=== PATIENT | female | born 1950 | race Caucasian/White ===

== ENCOUNTER 2018-03-26 21:27 | Emergency (ER) | payer MEDICARE, OTHER ==
[2018-03-26] MEDS ORDERED: FAMOTIDINE INJ/PF 20 MG/2 ML SDV IV ONE (21:37)
--- NOTE | 2018-03-26 21:39 | ER Document Report ---
ED Allergic Reaction - General Chief Complaint: Allergic Reaction Stated Complaint: ALLERGIC REACTION Time Seen by Provider: 03/26/18 21:32 Notes: Patient is a 67-year-old female that comes by EMS for chief complaint of insect sting and allergic reaction. Patient states that she was stung on the right arm by either a yellow jacket or wasp, she states that very shortly afterwards she started feeling itchy in her throat, had difficulty breathing, and felt like she was going to pass out. She also had a rash that broke out over her body. EMS gave her 0.3 mg IM of epinephrine, 50 mg of Benadryl, 125 mg of Solu- Medrol. Patient states that she feels significantly better. Patient was initially hypotensive with systolic in the 80s. Patient reports past medical history of hypertension and hyperlipidemia, lives at home, denies any other medical history. TRAVEL OUTSIDE OF THE [place] IN LAST 30 DAYS: No Past Medical History - General Information source: Patient - Social History Smoking Status: Never Smoker Frequency of alcohol use: None Drug Abuse: None Lives with: Family Family History: Reviewed & Not Pertinent - Immunizations Hx Diphtheria, Pertussis, Tetanus Vaccination: Yes Review of Systems - Review of Systems Constitutional: No symptoms reported EENT: See HPI Cardiovascular: No symptoms reported Respiratory: See HPI Gastrointestinal: No symptoms reported Genitourinary: No symptoms reported Female Genitourinary: No symptoms reported Musculoskeletal: No symptoms reported Skin: No symptoms reported Hematologic/Lymphatic: No symptoms reported Neurological/Psychological: No symptoms reported Physical Exam - Vital signs Vitals: Temp Pulse Resp BP Pulse Ox 98.6 F 76 18 136/55 H 96 03/26/18 21:27 03/26/18 21:27 03/26/18 21:27 03/26/18 21:27 03/26/18 21:27 - Notes Notes: GENERAL: Alert, interacts well. No acute distress. HEAD: Normocephalic, atraumatic. EYES: Pupils equal, round, and reactive to light. Extraocular movements intact. ENT: Oral mucosa moist, tongue midline. NECK: Full range of motion. Supple. Trachea midline. LUNGS: Clear to auscultation bilaterally, no wheezes, rales, or rhonchi. No respiratory distress. HEART: Regular rate and rhythm. No murmur ABDOMEN: Soft, non-tender. Non-distended. Bowel sounds present in all 4 quadrants. EXTREMITIES: Moves all 4 extremities spontaneously. No edema, normal radial and dorsalis pedis pulses bilaterally. No cyanosis. BACK: no cervical, thoracic, lumbar midline tenderness. No saddle anesthesia, normal distal neurovascular exam. NEUROLOGICAL: Alert and oriented x3. Normal speech. [cranial nerves II through XII grossly intact]. PSYCH: Normal affect, normal mood. SKIN: Warm, dry, normal turgor. Faint urticaria noted over the the arms, no other urticaria noted Course - Re-evaluation Re-evalutation: 03/26/18 21:35 Wheezing is resolved, throat swelling resolved, hives are almost completely faded, patient has no facial swelling, patient denies any complaints other than feeling jittery. Patient will be monitored and also given Pepcid 20 mg IV. Patient reevaluated, hives completed resolved, no rebound symptoms. Patient reevaluated again, has been monitored for over 2 hours, states she is ready to leave. Asymptomatic still. Because of patient's severe symptoms she will be provided with an epinephrine pen in addition to treatments going home, discussed return precautions in detail, patient is going home with her . Patient states understanding and agreement. - Vital Signs Vital signs: Temp Pulse Resp BP Pulse Ox 98.6 F 76 19 116/59 L 94 03/26/18 21:27 03/26/18 21:27 03/26/18 23:31 03/26/18 23:31 03/26/18 23:31 Discharge - Discharge Clinical Impression: Anaphylaxis Qualifiers: Encounter type: initial encounter Qualified Code(s): T78.2XXA - Anaphylactic shock, unspecified, initial encounter Hymenoptera sting Qualifiers: Encounter type: initial encounter Injury intent: accidental or unintentional Qualified Code(s): T63.481A - Toxic effect of venom of other arthropod, accidental (unintentional), initial encounter Condition: Stable Disposition: HOME, SELF-CARE Additional Instructions: You had an anaphylactic allergic reaction from the sting. Take the prednisone as prescribed to completion, take the Zyrtec and Pepcid daily for 1 week. Follow-up with primary care. In the event of another anaphylactic allergic reaction including difficulty breathing, difficulty swallowing, swelling, breaking out in a rash all over your body, take the epinephrine pen and return to the emergency department immediately. Prescriptions: Cetirizine HCl [Zyrtec 10 mg Tablet] 1 tab PO DAILY #30 tablet Epinephrine [Epipen 2-Kel] 0.3 mg IM ASDIR PRN #1 packet PRN Reason: Famotidine [Pepcid 20 mg Tablet] 20 mg PO DAILY #12 tablet Prednisone [Deltasone 10 mg Tablet] 10 mg PO ASDIR PRN #21 tablet PRN Reason:
[2018-03-26 23:52] VITALS: BP 116/59
== END 2018-03-26 23:53 | disposition home or self-care (01) ==
LOC: ER 21:27
DX: T63.481A Toxic effect of venom of other arthropod, accidental (unintentional), initial encounter (principal); T78.2XXA Anaphylactic shock, unspecified, initial encounter; L50.9 Urticaria, unspecified; I10 Essential (primary) hypertension
CPT/HCPCS: 99283; 96374; S0028